=== PATIENT | female | born 1965 | race Caucasian/White ===

== ENCOUNTER 2019-12-14 05:47 | Outpatient (CLI) | payer BC ==
[~2019-12-14] VITALS: Ht 160 cm; Wt 54.0 kg
[~2019-12-14 05:47] MED LIST: OMEP20TA33 PO; PANT40TA2 PO
[2019-12-19] MEDS ORDERED: HYDR-4226 PO (10:02)
== END 2019-12-14 13:28 | disposition home or self-care (01) ==
LOC: PREOP 05:47
PROVIDERS: ATTEND Obstetrics & Gynecology
DX: Z01.818 Encounter for other preprocedural examination (principal)